=== PATIENT | female | born 1935 | race Caucasian/White ===

== ENCOUNTER 2016-08-29 08:58 | Emergency (ER) | payer MEDICARE ==
[~2016-08-29] VITALS: Ht 175.3 cm; Wt 80.0 kg
[~2016-08-29 08:58] MED LIST: BENA40TA OR; CIPR500T2 PO; DYAZ37.57 PO; GLUCTAB PO; LEVO175T2 PO; LISI40TA PO; PRAV80 OR; ZOCO40TA PO; ZOFR8TAB PO
[2016-08-29 09:01] VITALS: BP 157/72; PULSE 92; RESP 30; TEMP 99.4; O2SAT 95
--- NOTE | 2016-08-29 11:25 | RADRPT ---
EXAM DATE/TIME: 08/29/2016 11:12 [place] COMPARISON: CHEST SINGLE AP, April 04, 2011, 18:22. INDICATIONS : Shortness of breath. MEDICAL HISTORY : None. SURGICAL HISTORY : None. ENCOUNTER: Initial ACUITY: 4 - 6 days PAIN SCORE: 0/10 LOCATION: Bilateral chest FINDINGS: PA and lateral views of the chest demonstrate the lungs to be symmetrically aerated without evidence of mass, infiltrate or effusion. Atherosclerotic calcifications are present in the aorta. The cardio mediastinal contours are unremarkable. Osseous structures are intact. CONCLUSION: No acute disease. Marco Sahu MD on August 29, 2016 at 11:23 Board Certified Radiologist. This report was verified electronically.
[2016-08-29 11:27] LABS: AUTOMATED NEUTROPHIL # 10.2 TH/MM3 (1.8-7.7); BASOPHIL % 0.3 % (0.0-2.0); EOSINOPHIL % 0.1 % (0.0-4.0); HEMATOCRIT 38.6 % (35.0-46.0); HEMO FLAGS DIFF FINAL; LYMPH % 4.2 % (9.0-44.0); LYMPHOCYTE # 0.5 TH/MM3 (1.0-4.8); MEAN CORPUSCULAR HEMOGLOBIN 28.3 PG (27.0-34.0); MEAN CORPUSCULAR HGB CONC 33.3 % (32.0-36.0); MONO % 5.4 % (0.0-8.0); PLATELET COUNT 265 TH/MM3 (150-450); RED BLOOD COUNT 4.54 MIL/MM3 (4.00-5.30); RED CELL DISTRIBUTION WIDTH 13.8 % (11.6-17.2); WHITE BLOOD COUNT 11.4 TH/MM3 (4.0-11.0)
[2016-08-29 11:44] LABS: BICARBONATE 23.3 MEQ/L (21.0-32.0); POTASSIUM 4.1 MEQ/L (3.5-5.1)
[2016-08-29 12:11] VITALS: BP 150/72; PULSE 72; RESP 20; TEMP 98.8; O2SAT 96
[2016-08-29 12:16] VITALS: BP 150/72; PULSE 72; RESP 20; O2SAT 96
[2016-08-29] MEDS ORDERED: methylPREDNISolone SOD SUCC 125 MG/2 ML VIAL IV PUSH ONE (12:30)
--- NOTE | 2016-08-29 12:30 | PD ---
HPI Chief Complaint: Respiratory Symptoms Time Seen by Provider: 12:18 Travel History International Travel<30 days: No Contact w/Intl Traveler<30days: No Traveled to known affect area: No History of Present Illness HPI This is an 80-year-old female who has a history of COPD who presents to the emergency department having had a cold for one week with copious rhinorrhea, productive cough with yellow sputum, associated with shortness of breath worse with exertion, improved with rest, moderate severity. She says she had a fever up to 101. She says overnight she's been having a lot of difficulty breathing which has been getting worse throughout the morning. She doesn't use any breathing treatments at home and she says her shortness of breath is worse than it's ever been. PFSH Past Medical History Cardiovascular Problems: Yes High Cholesterol: Yes Diabetes: Yes Patient Takes Glucophage: No Genitourinary: No Hypertension: Yes Musculoskeletal: No Neurologic: No Reproductive: No Respiratory: Yes Influenza Vaccination: Yes ?: Not Past Surgical History Abdominal Surgery: Yes (BOWEL RECONSTRUCTION) Gynecologic Surgery: Yes (VAGINAL RECONSTRUCTION) Hysterectomy: Yes Other Surgery: Yes Social History Alcohol Use: No Tobacco Use: No Substance Use: No Allergies-Medications (Allergen,Severity, Reaction): Coded Allergies: Penicillin (Verified Allergy, Severe, HIVES, 08/29/16) Sulfa (Verified Allergy, Severe, HIVES, 08/29/16) Darvocet-N 100 (Verified Adverse Reaction, Severe, NAUSEA/VOMTING, 08/29/16 ) Vicodin (Verified Adverse Reaction, Severe, NAUSEA/VOMITING, 08/29/16) Uncoded Allergies: FLONASE (Adverse Reaction, Intermediate, 05/11/10) Reported Meds & Prescriptions Reported Meds & Active Scripts Active Reported Dyazide (Triamterene-Hydrochlorothiazide) 37.5-25 Mg Cap 1 Cap PO DAILY Levothyroxine (Levothyroxine Sodium) 137 Mcg Tab 137 Mcg PO DAILY Lisinopril 40 Mg Tab 40 Mg PO DAILY Metformin ER (Metformin HCl) 500 Mg Janice 500 Mg PO AC DINNER With evening meal Pravastatin 40 Mg Tab 40 Mg PO HS Glipizide 10 Mg Tab 10 Mg PO BID Take 30 minutes before a meal Amlodipine (Amlodipine Besylate) 10 Mg Tab 10 Mg PO DAILY Preservision Areds 2 (Multiple Vitamins W/ Minerals) 1 Cap 1 Cap PO BID Megared [place]-3 Krill Oil (Krill Oil) 500 Mg Cap 500 Mg PO DAILY Omeprazole 20 Mg Tab 20 Mg PO DAILY Victoza Inj (Liraglutide Inj) 18 Mg/3 Ml Pen 0.2 Mg SQ DAILY Review of Systems Except as stated in HPI: all other systems reviewed are Neg Physical Exam Narrative GENERAL: Frail elderly female SKIN: Warm and dry. HEAD: Atraumatic. Normocephalic. EYES: Pupils equal and round. No injection or drainage. ENT: Moist mucous membranes NECK: Trachea midline. CARDIOVASCULAR: Regular rate and rhythm. No murmur appreciated. RESPIRATORY: Diffuse wheezing with tachypnea GASTROINTESTINAL: Abdomen soft, non-tender, nondistended. MUSCULOSKELETAL: No obvious deformities. NEUROLOGICAL: Awake and alert. No obvious cranial nerve deficits. Moving all extremities. PSYCHIATRIC: Appropriate mood and affect; insight and judgment normal. Data Data Last Documented VS Vital Signs Date Time Temp Pulse Resp B/P Pulse Ox O2 Delivery O2 Flow Rate FiO2 08/29/16 13:15 82 20 131/63 93 Nasal Cannula 3 08/29/16 12:11 98.8 Orders Complete Blood Count With Diff (08/29/16 10:32) Basic Metabolic Panel (Bmp) (08/29/16 10:32) Chest, Pa & Lat (08/29/16 10:32) Blood Culture (08/29/16 10:32) Iv Access Insert/Monitor (08/29/16 10:32) Ecg Monitoring (08/29/16 10:32) Oxygen Administration (08/29/16 10:32) Oximetry (08/29/16 10:32) Electrocardiogram (08/29/16 10:32) Lactic Acid Sepsis Protocol (08/29/16 11:17) Troponin I (08/29/16 12:26) Influenzae A/B Antigen (08/29/16 12:26) Methylprednisolone So Succ Inj (Solumedr (08/29/16 12:30) Albuterol-Ipratropium Neb (Duoneb Neb) (08/29/16 12:30) Labs Laboratory Tests Test 08/29/16 10:45 White Blood Count 11.4 TH/MM3 Red Blood Count 4.54 MIL/MM3 Hemoglobin 12.9 GM/DL Hematocrit 38.6 % Mean Corpuscular Volume 85.0 FL Mean Corpuscular Hemoglobin 28.3 PG Mean Corpuscular Hemoglobin 33.3 % Concent Red Cell Distribution Width 13.8 % Platelet Count 265 TH/MM3 Mean Platelet Volume 8.4 FL Neutrophils (%) (Auto) 90.0 % Lymphocytes (%) (Auto) 4.2 % Monocytes (%) (Auto) 5.4 % Eosinophils (%) (Auto) 0.1 % Basophils (%) (Auto) 0.3 % Neutrophils # (Auto) 10.2 TH/MM3 Lymphocytes # (Auto) 0.5 TH/MM3 Monocytes # (Auto) 0.6 TH/MM3 Eosinophils # (Auto) 0.0 TH/MM3 Basophils # (Auto) 0.0 TH/MM3 CBC Comment DIFF FINAL Differential Comment Sodium Level 126 MEQ/L Potassium Level 4.1 MEQ/L Chloride Level 91 MEQ/L Carbon Dioxide Level 23.3 MEQ/L Anion Gap 12 MEQ/L Blood Urea Nitrogen 24 MG/DL Creatinine 1.37 MG/DL Estimat Glomerular Filtration 37 ML/MIN Rate Random Glucose 221 MG/DL Lactic Acid Level 1.9 mmol/L Calcium Level 8.8 MG/DL Troponin I LESS THAN 0.02 NG/ML [facility] Medical Decision Making Medical Screen Exam Complete: Yes Emergency Medical Condition: Yes Interpretation(s) Temperature is 99.4, tachypnea, no hypoxia Mild leukocytosis with left shift Hyponatremia Creatinine is 1.3 Troponin is 0.02 Differential Diagnosis COPD exacerbation, bronchitis, pneumonia, influenza Narrative Course This is an 80-year-old female who has a history of COPD who presents to the emergency department with increasing shortness of breath and productive cough. She was placed in a monitor and an IV was established. She was found to be diffusely wheezing with poor air movement. She was given serial bronchodilators treatments as well as IV steroids and she improved significantly. We had along conversation regarding inpatient versus outpatient management. She would prefer to go home. I think it's reasonable to discharge her on prednisone, azithromycin and bronchodilators. She will follow up with Dr. Horton or her primary care physician on Saturday for recheck. Diagnosis Primary Impression: COPD exacerbation Patient Instructions: General Instructions Additional Instructions: If you develop severe shortness of breath, chest pain, or difficulty breathing return to the emergency department. Use albuterol every 4 hours for the next 2 days. Then use as needed for wheezing. Complete your course of steroids. Complete your course of antibiotics. Follow up with your primary care physician in 2-3 days if your symptoms have not improved. Med/Other Pt SpecificInfo: Prescription(s) given Scripts Azithromycin 250 Mg [id number] Mg PO DIRECTED #6 TAB Take 2 tabs (500 mg) on day 1 then 1 tab daily x 4 days. Prov:Zahida Duran MD 08/29/16 Prednisone 20 Mg Tab40 Mg PO DAILY 4 Days Prov:Zahida Duran MD 08/29/16 Nebulizer Compressor/Dual 1 Kit Kit #1 KIT INH DIRECTED PRN (SHORTNESS OF BREATH) Ref 1 Prov:Zahida Duran MD 08/29/16 Albuterol Neb 2.5 Mg/0.5 Ml Neb2.5 Mg NEB TID NEB PRN (SHORTNESS OF BREATH) #90 NEBULE Ref 0 Note: The Albuterol Sulfate Inhalation Solution is concentrated and must be diluted. Read complete instructions carefully before using. Prov:Zahida Duran MD 08/29/16 Disposition: 01 DISCHARGE HOME Condition: Stable Zahida Duran MD Aug 29, 2016 12:30
[2016-08-29] MEDS: RESP: ALBUTEROL 2.5 MG/IPRATROPIUM 0.5 MG NEB (SCH) INH (12:38)
[2016-08-29 13:15] VITALS: BP 131/63; PULSE 82; RESP 20; O2SAT 93
[2016-08-29] MEDS ORDERED: AMLO10TA2 PO (14:05)
[2016-08-29] MEDS ORDERED: VICT18IN SQ (14:05)
[2016-08-29] MEDS ORDERED: KRIL1CAP9 PO (14:05)
[2016-08-29] MEDS ORDERED: LEVO137T2 PO (14:05)
[2016-08-29] MEDS ORDERED: GLIP10TA6 PO (14:05)
[2016-08-29] MEDS ORDERED: PRAV40TA2 PO (14:05)
[2016-08-29] MEDS ORDERED: PRESCAP5 PO (14:05)
[2016-08-29] MEDS ORDERED: OMEP20TA PO (14:05)
[2016-08-29] MEDS ORDERED: LISI40TA PO (14:05)
[2016-08-29] MEDS ORDERED: METF500T4 PO (14:05)
[2016-08-29] MEDS ORDERED: DYAZ37.5 PO (14:05)
[2016-08-29] MEDS ORDERED: ALBU.5I NEB (14:15)
[2016-08-29] MEDS ORDERED: AZIT250T3 PO (14:15)
[2016-08-29] MEDS ORDERED: NEBULIZER COMPR1 KIT INH (14:15)
[2016-08-29] MEDS ORDERED: PRED20 PO (14:15)
[2016-08-29 14:49] VITALS: BP 127/61
--- NOTE | 2016-08-30 11:37 | EKG ---
Date Performed: 08/29/2016 Time Performed: 10:38:11 PTAGE: 80 years EKG: Sinus rhythm WITH SINUS ARRHYTHMIA WITH FIRST DEGREE AV BLOCK MARKED LEFT AXIS DEVIATION ST DEVIATION AND MODERAT E T-WAVE ABNORMALITY, CONSIDER LATERAL ISCHEMIA ABNORMAL ECG PREVIOUS TRACING : 04/04/2011 17.47 DOCTOR: Jaime Santos Interpretating Date/Time 08/30/2016 11:35:43
== END 2016-08-29 14:50 | disposition home or self-care (01) ==
LOC: NEPE 08:58
DX: J44.1 Chronic obstructive pulmonary disease with (acute) exacerbation (principal); R50.9 Fever, unspecified; I49.8 Other specified cardiac arrhythmias; I44.0 Atrioventricular block, first degree; E78.00 Pure hypercholesterolemia, unspecified; E11.9 Type 2 diabetes mellitus without complications; I10 Essential (primary) hypertension; E87.1 Hypo-osmolality and hyponatremia; R06.02 Shortness of breath; R05 Cough; R06.2 Wheezing
CPT/HCPCS: 71020; 80048; 83605; 84484; 85025; 87040; 87804; 93005; 94640; 94664; 96374; 99284; J2930